=== PATIENT | male | born 1980 | race Caucasian/White ===

== ENCOUNTER 2021-11-30 12:27 | Emergency (ER) | payer SELFPAY ==
[2021-11-30] MEDS ORDERED: cefTRIAXone 1 GM Vial IM ONE (12:42)
[2021-11-30] MEDS ORDERED: methylPREDNISolone Sodium Succinate 125 MG/2 ML SDV IM SCH (12:45)
== END 2021-11-30 13:15 | disposition home or self-care (01) ==
LOC: CC.ED 12:27
DX: G51.0 Bell's palsy (principal); K02.9 Dental caries, unspecified
CPT/HCPCS: 96372; 99283; 99284; J0696; J2930

== ENCOUNTER 2022-06-07 15:41 | Emergency (ER) | payer SELFPAY ==
[2022-06-07] MEDS ORDERED: Take Home: Amoxicillin/Clavulanate K 875-125 MG Tab, 2 Tab Pack PO ONE (16:12)
[2022-06-07] MEDS ORDERED: Take Home: predniSONE 20 MG, 2 Tab Pack PO ONE (16:12)
== END 2022-06-07 16:28 | disposition home or self-care (01) ==
LOC: CC.ED 15:41
DX: K04.7 Periapical abscess without sinus (principal); G51.0 Bell's palsy
CPT/HCPCS: 99282; A9270-GY; J7512

== ENCOUNTER 2024-01-24 15:54 | Emergency (ER) | payer SELFPAY ==
[2024-01-24] MEDS: Diphtheria,Pertussis(Acell),Tetanus Vaccine 0.5 ML Syringe IM ONE (16:17)
== END 2024-01-24 16:31 | disposition home or self-care (01) ==
LOC: CC.ED 15:54
DX: S91.331A Puncture wound without foreign body, right foot, initial encounter (principal); F17.210 Nicotine dependence, cigarettes, uncomplicated; W45.8XXA Other foreign body or object entering through skin, initial encounter; Y92.009 Unspecified place in unspecified non-institutional (private) residence as the place of occurrence of the external cause
CPT/HCPCS: 73630-RT; 90471; 90715; 99283-25